=== PATIENT | female | born 1950 | race Caucasian/White ===

== ENCOUNTER 2018-09-22 06:13 | Day surgery (SDC) | payer MEDICARE ==
[2018-09-13 08:52] VITALS: BMI 29.7
[2018-09-22 07:10] VITALS: RESP 16
[2018-09-22] MEDS ORDERED: Lidocaine 1% Inj (20ml) ONE (07:57)
[2018-09-22] MEDS ORDERED: Propofol 10 mg/ml Inj (20 ML) ONE (07:57)
[2018-09-22] MEDS ORDERED: ePHEDrine 50 mg/ml Inj ONE (08:19)
[2018-09-22] MEDS ORDERED: Sodium Chloride 0.9% 1,000 ML IV SCH (09:00)
[2018-09-22 10:10] VITALS: BP 103/53; PULSE 62; TEMP 97.4; O2SAT 99
== END 2018-09-22 10:09 | disposition home or self-care (01) ==
LOC: ENDO 06:13
PROVIDERS: ATTEND Specialist
DX: Z12.11 Encounter for screening for malignant neoplasm of colon (principal); D12.3 Benign neoplasm of transverse colon; K57.30 Diverticulosis of large intestine without perforation or abscess without bleeding; K64.8 Other hemorrhoids
CPT/HCPCS: 45385; 88305; J2704; J7030